=== PATIENT | female | born 2000 | race Caucasian/White ===

== ENCOUNTER 2024-02-18 15:00 | Outpatient (RCR) | payer OTHER, SELFPAY | END 2024-06-17 23:59 | disposition home or self-care (01) | PROVIDERS: Visit Provider Family Medicine | DX: S13.9XXA Sprain of joints and ligaments of unspecified parts of neck, initial encounter (principal); S06.0X0A Concussion without loss of consciousness, initial encounter; S63.694A Other sprain of right ring finger, initial encounter; M54.2 Cervicalgia; Z51.89 Encounter for other specified aftercare | CPT/HCPCS: 97140; 97162 ==

== ENCOUNTER 2025-04-20 11:30 | Outpatient (RCR) | payer BC, SELFPAY | END 2025-08-18 23:59 | disposition home or self-care (01) | PROVIDERS: Visit Provider Family Medicine | DX: M25.511 Pain in right shoulder (principal); Z51.89 Encounter for other specified aftercare | CPT/HCPCS: 97110; 97140; 97161 ==